=== PATIENT | male | born 1995 | race American Indian/Alaskan Native ===

== ENCOUNTER 2019-01-22 16:27 | Emergency (ER) | payer OTHER ==
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
[2019-01-22] MEDS ORDERED: IBUPROFEN PO ONE (16:36)
[2019-01-22 16:53] VITALS: BP 125/66
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
== END 2019-01-22 18:58 | disposition home or self-care (01) ==
LOC: ED 16:27
DX: M54.2 Cervicalgia (principal); M54.5 Low back pain; M79.10 Myalgia, unspecified site; V49.09XA Driver injured in collision with other motor vehicles in nontraffic accident, initial encounter; Y93.89 Activity, other specified; Y92.488 Other paved roadways as the place of occurrence of the external cause; Y99.8 Other external cause status
CPT/HCPCS: 72040; 72100; 99283

== ENCOUNTER 2022-03-08 14:24 | Emergency (ER) | payer OTHER ==
--- NOTE | 2022-03-08 15:15 | XRay Report ---
XR chest routine 2V INDICATION / CLINICAL INFORMATION: chest tightness COMPARISON: None available. FINDINGS: SUPPORT DEVICES: None. HEART / MEDIASTINUM: No significant abnormality. LUNGS / PLEURA: Lungs are clear. Costophrenic sulci are sharp. No pneumothorax. ADDITIONAL FINDINGS: No significant additional findings. IMPRESSION: 1. No acute findings. Signer Name: John Galvez MD Signed: 03/08/2022 3:11 PM Workstation Name: [id number]
[2022-03-08] MEDS ORDERED: IBUPROFEN 800 MG TAB PO ONE (16:21)
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
[2022-03-08 16:56] VITALS: BP 127/61
== END 2022-03-08 16:58 | disposition home or self-care (01) ==
LOC: ED 14:24
DX: R07.89 Other chest pain (principal); F41.9 Anxiety disorder, unspecified; Z79.899 Other long term (current) drug therapy; F17.200 Nicotine dependence, unspecified, uncomplicated; V89.2XXA Person injured in unspecified motor-vehicle accident, traffic, initial encounter; Y93.89 Activity, other specified; Y92.89 Other specified places as the place of occurrence of the external cause; Y99.8 Other external cause status
CPT/HCPCS: 71046; 93005; 99283; 99284